=== PATIENT | female | born 1980 | race African-American/Black ===

== ENCOUNTER 2017-05-09 22:13 | Emergency (ER) | payer OTHER ==
[~2017-05-09] VITALS: Ht 175.3 cm; Wt 82.3 kg
[2017-05-09 22:21] VITALS: BP 144/88
--- NOTE | 2017-05-09 22:21 | NUR ---
PT TAKEN TO CHAIR E
--- NOTE | 2017-05-09 22:47 | NUR ---
PT MOVED TO BED 11
--- NOTE | 2017-05-10 00:21 | NUR ---
MD MADE AWARE OF UA AND RESULT
[2017-05-10 00:28] VITALS: BP 144/88
--- NOTE | 2017-05-10 00:29 | NUR ---
Patient discharged with v/s stable. Written and verbal after care instructions given and explained. Patient verbalized understanding. Ambulatory with steady gait. All questions addressed prior to discharge. Advised to follow up with PMD.
== END 2017-05-10 00:29 | disposition home or self-care (01) ==
LOC: MED 22:13
DX: Z30.432 Encounter for removal of intrauterine contraceptive device (principal); Z32.02 Encounter for pregnancy test, result negative; R03.0 Elevated blood-pressure reading, without diagnosis of hypertension
CPT/HCPCS: 81002; 81025; 99282

== ENCOUNTER 2018-02-16 12:36 | Emergency (ER) | payer SELFPAY ==
[~2018-02-16] VITALS: Ht 177.8 cm; Wt 83.7 kg
[2018-02-16 12:49] VITALS: BP 136/78
--- NOTE | 2018-02-16 12:53 | NUR ---
PT AMBULATES TO BED 4
--- NOTE | 2018-02-16 12:56 | NUR ---
PT. CAME INTO ED W/ c/o 2 days with drainage from eyes, ou red burning pain discoloration to left eyelid--pt states she had rubbed off make up with toilet paper prior to symptoms. DENIES ANY FEVERS. DENIES ANY VISION CHANGES. ER MD MADE AWARE. WILL CONTINUE TO MONITOR. SAFETY PRECAUTIONS IMPLEMENTED. WILL CONTINUE TO MONITOR.
[2018-02-16] MEDS ORDERED: TETRACAINE HCL/PF 0.5% OPTH 4 ML BTL OP ONE (14:35)
[2018-02-16] MEDS ORDERED: FLUORESCEIN OPTH STRIP 0.6 MG OP ONE (14:35)
[2018-02-16 15:15] VITALS: BP 130/82
--- NOTE | 2018-02-16 15:15 | NUR ---
Patient discharged with v/s stable. Written and verbal after care instructions given and explained. Patient alert, oriented and verbalized understanding of instructions. Ambulatory with steady gait. All questions addressed prior to discharge. ID band removed. Patient advised to follow up with PMD. Rx of ERYTHROMYCIN 0.5% OPTHALMIC SOLUTION given. Patient educated on indication of medication including possible reaction and side effects. Opportunity to ask questions provided and answered.
== END 2018-02-16 15:15 | disposition home or self-care (01) ==
LOC: MED 12:36
DX: H10.89 Other conjunctivitis (principal); B96.89 Other specified bacterial agents as the cause of diseases classified elsewhere
CPT/HCPCS: 99283

== ENCOUNTER 2018-06-23 04:40 | Emergency (ER) | payer MEDICAID ==
[~2018-06-23] VITALS: Ht 175.3 cm; Wt 86.2 kg
--- NOTE | 2018-06-23 04:59 | NUR ---
TO BED #09 AMBULATORY
[2018-06-23 05:00] VITALS: BP 152/88
--- NOTE | 2018-06-23 05:00 | NUR ---
Dr. Diaz evaluating patient
--- NOTE | 2018-06-23 05:07 | NUR ---
37/F COMPLAINTS OF RIGHT KNEE PAIN. AOX4. ABLE TO VERBALIZE NEEDS, STATES SHE HEARD A "CLICK" IN HER KNEE WHEN ATTEMPTING TO [employer] SOMETHING. ALL NEEDS. MET. MADE AWARE. WILL CONTINUE TO MONITOR.
[2018-06-23 05:08] VITALS: BP 152/88
== END 2018-06-23 05:10 | disposition home or self-care (01) ==
LOC: MED 04:40
DX: M25.561 Pain in right knee (principal); Z02.1 Encounter for pre-employment examination
CPT/HCPCS: 99281

== ENCOUNTER 2018-11-24 14:30 | Emergency (ER) | payer MEDICAID, OTHER ==
[~2018-11-24] VITALS: Ht 175.3 cm; Wt 81.2 kg
[2018-11-24 14:38] VITALS: BP 139/74
[2018-11-24 16:02] LABS: BASOPHILS % (AUTO) 1.4 % (0.0-2.0); EOSINOPHILS # (AUTO) 0.3 K/uL (0-0.4); EOSINOPHILS % (AUTO) 9.1 % (0.0-4.0); HEMOGLOBIN 13.2 g/dL (12.0-16.0); LYMPHOCYTES % (AUTO) 33.6 % (20.5-51.1); MEAN CORPUSCULAR HEMOGLOBIN 29 pg (27-31); MEAN CORPUSCULAR HGB CONC 33 g/dL (33-37); MEAN CORPUSCULAR VOLUME 88.2 fL (80-94); MONOCYTES # (AUTO) 0.2 K/uL (0.8-1.0); NEUTROPHILS # (AUTO) 1.4 K/uL (1.8-7.7); NEUTROPHILS % (AUTO) 47.9 % (42.2-75.2); PLATELET COUNT (AUTO) 248 K/uL (140-450); RED BLOOD CELL COUNT(AUTO) 4.53 MIL/uL (4.20-5.40); RED CELL DISTRIBUTION WIDTH 13.2 % (11.6-13.7); WHITE BLOOD COUNT (AUTO) 2.9 K/uL (4.8-10.8)
[2018-11-24 16:22] LABS: ANION GAP 8.6 (8-16); CARBON DIOXIDE 27.8 mmol/L (21-32); CREATININE 0.8 mg/dL (0.6-1.3); POTASSIUM 3.4 mmol/L (3.5-5.1)
[2018-11-24 16:25] VITALS: BP 139/74
[2018-11-27 12:52] LABS: CHLAMYDIA TRACHOMATIS AMP DNA NEGATIVE (NEGATIVE)
[2018-11-28 16:25] LABS: RAPID PLASMA REAGIN NON-REACTIVE (Non Reactiv)
== END 2018-11-24 16:25 | disposition home or self-care (01) ==
LOC: MED 14:30
DX: A64 Unspecified sexually transmitted disease (principal)
CPT/HCPCS: 36415; 80048; 85025; 86592; 87491; 87529; 99283

== ENCOUNTER 2020-05-20 22:29 | Emergency (ER) | payer OTHER ==
[~2020-05-20] VITALS: Ht 175.3 cm; Wt 81.2 kg
--- NOTE | 2020-05-20 22:32 | NUR ---
Pt's name called x 3 in lobby - no response.
[2020-05-20 22:35] VITALS: BP 169/103
--- NOTE | 2020-05-20 22:40 | NUR ---
Pt ambulated to lobby w/ steady gait. VSS.
--- NOTE | 2020-05-20 23:27 | NUR ---
AMBULATED TO BED 8 FROM [facility]
--- NOTE | 2020-05-20 23:27 | NUR ---
PATIENT PRESENTS TO ED WITH ABDOMINAL PAIN. PT STATES "I MIGHT HAVE INTERNAL BLEEDING" AND "I THINK IM ALLERGIC TO RADIATION". PT IS EXPRESSING PARANOID THOUGHTS. DENIES N/V/D; SKIN IS PINK/WARM/DRY; AAOX4 WITH EVEN AND STEADY GAIT; LUNGS CLEAR BL; HR EVEN AND REGULAR; PT DENIES ANY FEVER, CP, SOB, OR COUGH AT THIS TIME; PATIENT DENIES PAIN AT THIS TIME; VSS; PATIENT POSITIONED FOR COMFORT; HOB ELEVATED; BEDRAILS UP X2; BED DOWN. ER MD MADE AWARE OF PT STATUS. PMH: N/A ALLERGIES: N/A
--- NOTE | 2020-05-20 23:40 | NUR ---
DR HECTOR AT BEDSIDE FOR EXAM
[2020-05-20] MEDS ORDERED: PANTOPRAZOLE 40 MG INJ VIAL IVP ONE (23:45)
[2020-05-20] MEDS ORDERED: KETOROLAC 30 MG/ML VIAL IVP ONE (23:45)
[2020-05-20] MEDS ORDERED: NACL 0.9% 1,000 ML IV ONE (23:45)
--- NOTE | 2020-05-21 00:08 | NUR ---
PT BROUGHT TO XRAY VIA W/C
--- NOTE | 2020-05-21 00:09 | NUR ---
PT BROUGHT BACK FROM XRAY STUDY NOT COMPLETED. PT CONCERNED REGARDING STATUS
--- NOTE | 2020-05-21 00:15 | NUR ---
IV ESTABLISHED IN LEFT AC
[2020-05-21 00:16] LABS: BASOPHILS % (AUTO) 1.2 % (0.0-2.0); EOSINOPHILS # (AUTO) 0.2 K/uL (0-0.4); EOSINOPHILS % (AUTO) 5.1 % (0.0-4.0); HEMATOCRIT 35.8 % (36-48); HEMOGLOBIN 11.8 g/dL (12.0-16.0); LYMPHOCYTES # (AUTO) 1.7 K/uL (2.5-16.5); LYMPHOCYTES % (AUTO) 51.8 % (20.5-51.1); MEAN CORPUSCULAR HEMOGLOBIN 29 pg (27-31); MEAN CORPUSCULAR HGB CONC 33 g/dL (33-37); MEAN CORPUSCULAR VOLUME 89.2 fL (80-94); MONOCYTES # (AUTO) 0.4 K/uL (0.8-1.0); PLATELET COUNT (AUTO) 213 K/uL (140-450); RED BLOOD CELL COUNT(AUTO) 4.02 MIL/uL (4.20-5.40); RED CELL DISTRIBUTION WIDTH 13.1 % (11.6-13.7); WHITE BLOOD COUNT (AUTO) 3.3 K/uL (4.8-10.8)
--- NOTE | 2020-05-21 00:20 | NUR ---
PT REFUSED MEDICATIONS AND XRAY DUE TO POSSIBLE . PT UNABLE TO GIVE UA AT THIS TIME
[2020-05-21 00:30] LABS: PROTHROMBIN TIME 9.8 secs (10.8-13.4)
[2020-05-21 00:32] LABS: ALBUMIN 3.3 g/dL (3.4-5.0); ANION GAP 11.3 (8-16); CARBON DIOXIDE 27.2 mmol/L (21-32); CREATININE 0.8 mg/dL (0.6-1.3); POTASSIUM 3.5 mmol/L (3.5-5.1); TOTAL BILIRUBIN 0.2 mg/dL (0.0-1.0)
[2020-05-21 00:36] LABS: NEUTROPHILS % (AUTO) 29.9 % (42.2-75.2)
--- NOTE | 2020-05-21 00:43 | NUR ---
REPORTED TO DR BUCHANAN ABOUT PT REFUSING MEDICATIONS AND XRAY
--- NOTE | 2020-05-21 01:21 | NUR ---
PT RETURNED FROM RAD VIA W/C
[2020-05-21] MEDS ORDERED: PANT20EC PO (01:40)
[2020-05-21 01:58] VITALS: BP 160/100
--- NOTE | 2020-05-21 01:58 | NUR ---
Patient discharged with v/s stable AND DENIES A 0/10 PAIN. REPEAT BP 160/100 ER MD AWARE. Written and verbal after care instructions given and explained. Patient alert, oriented and verbalized understanding of instructions. Ambulatory with steady gait. All questions addressed prior to discharge. ID band removed. Patient advised to follow up with PMD. Rx of PROTONIX given. Patient educated on indication of medication including possible reaction and side effects. Opportunity to ask questions provided and answered.
== END 2020-05-21 01:58 | disposition home or self-care (01) ==
LOC: MED 22:29
DX: K21.9 Gastro-esophageal reflux disease without esophagitis (principal)
CPT/HCPCS: 36415; 74022; 80053; 81025; 85025; 85610; 85730; 96361; 96374; 96375; 99284; J7030

== ENCOUNTER 2020-07-03 22:05 | Emergency (ER) | payer OTHER ==
[~2020-07-03] VITALS: Ht 175.3 cm; Wt 76.7 kg
[~2020-07-03 22:05] MED LIST: PANT20EC PO
[2020-07-03 22:09] VITALS: BP 149/83
--- NOTE | 2020-07-03 22:30 | NUR ---
PT TAKEN TO BED 4
--- NOTE | 2020-07-03 22:30 | NUR ---
URINE SAMPLE COLLECTED, TAKEN TO LAB AND HAND GIVEN TO PILI SLOAN TECH.
--- NOTE | 2020-07-03 22:31 | NUR ---
patient ambulated to bed 04 with steady gait.
--- NOTE | 2020-07-03 22:35 | NUR ---
39/F complaining of dizziness and abdominal pain "when driving in car" x 4 months. Pt currently with no pain, n/v/d, fever at this moment. Pt currently not in distress, no requests made. med hx: denies allergies: nka
--- NOTE | 2020-07-03 22:36 | NUR ---
Dr. Hairston examining patient.
--- NOTE | 2020-07-03 23:03 | NUR ---
X-Ray at bedside.
[2020-07-03 23:12] LABS: BASOPHILS % (AUTO) 1.3 % (0.0-2.0); EOSINOPHILS # (AUTO) 0.1 K/uL (0-0.4); EOSINOPHILS % (AUTO) 3.2 % (0.0-4.0); LYMPHOCYTES % (AUTO) 30.7 % (20.5-51.1); MEAN CORPUSCULAR HEMOGLOBIN 29 pg (27-31); MEAN CORPUSCULAR HGB CONC 33 g/dL (33-37); MEAN CORPUSCULAR VOLUME 88.2 fL (80-94); MONOCYTES # (AUTO) 0.3 K/uL (0.8-1.0); MONOCYTES % (AUTO) 8.9 % (1.7-9.3); NEUTROPHILS # (AUTO) 1.9 K/uL (1.8-7.7); NEUTROPHILS % (AUTO) 55.9 % (42.2-75.2); PLATELET COUNT (AUTO) 241 K/uL (140-450); RED BLOOD CELL COUNT(AUTO) 4.42 MIL/uL (4.20-5.40); RED CELL DISTRIBUTION WIDTH 13.1 % (11.6-13.7); WHITE BLOOD COUNT (AUTO) 3.4 K/uL (4.8-10.8)
--- NOTE | 2020-07-03 23:15 | NUR ---
urine sent to lab
[2020-07-03] MEDS: ACETAMINOPHEN EXTRA STRENGTH 500 MG TAB PO ONE ×2 (23:18→23:24)
[2020-07-03 23:19] LABS: APPEARANCE,URINE CLEAR (CLEAR); BILIRUBIN,URINE NEGATIVE (NEGATIVE); BLOOD, URINE NEGATIVE (NEGATIVE); COLOR,URINE YELLOW (YELLOW); LEUKOCYTE ESTERASE ,URINE NEGATIVE (NEGATIVE); NITRITE, URINE POSITIVE (NEGATIVE); UGLUCOSE NEGATIVE (NEGATIVE)
--- NOTE | 2020-07-03 23:24 | NUR ---
patient refused tylenol saying "i dont need it". made aware
[2020-07-03 23:27] LABS: ALBUMIN 3.9 g/dL (3.4-5.0); ASPARTATE AMINOTRANSFERASE 36 U/L (15-37); CARBON DIOXIDE 28.9 mmol/L (21-32); CHLORIDE 107 mmol/L (98-107); GFR ARICAN-AMERICAN 79 mL/min (>90); GLUCOSE 114 mg/dL (74-106); SODIUM SERUM 144 mmol/L (136-145); TOTAL BILIRUBIN 0.6 mg/dL (0.0-1.0); UREA NITROGEN, BLOOD 11 mg/dL (7-18)
[2020-07-03 23:28] LABS: POTASSIUM 2.9 mmol/L (3.5-5.1)
[2020-07-03 23:34] LABS: RBC,URINE 0-5 /HPF (0-5)
[2020-07-03] MEDS: POTASSIUM CHLORIDE 10 MEQ TABER PO ONE ×2 (23:34→23:35)
[2020-07-03 23:36] LABS: BARBITURATE, URINE NEGATIVE ng/ml (NEG <=200); BENZODIAZEPINE, URINE NEGATIVE ng/mL (NEG <=200); CANNABINOID, URINE NEGATIVE ng/mL (NEG <=50); COCAINE, URINE NEGATIVE ng/mL (NEG <=300); OPIATE, URINE NEGATIVE ng/mL (NEG <=2000); PHENCYCLIDINE SCREEN,URINE NEGATIVE ng/mL (NEG <=25)
--- NOTE | 2020-07-03 23:36 | NUR ---
patient refused KDur ordered despite health teaching. Pt said "i dont want it, i'll just eat bananas"
--- NOTE | 2020-07-03 23:42 | NUR ---
X-Ray at bedside.
[2020-07-03] MEDS ORDERED: cephALEXin 500 MG CAP PO ONE (23:45)
[2020-07-04] MEDS ORDERED: CEPH-588 PO
--- NOTE | 2020-07-04 00:03 | NUR ---
Dr. Hairston at bedside
--- NOTE | 2020-07-04 00:17 | NUR ---
patient refused cephalexin ordered. pt education provided, explained the importance of taking the medication. pt still refused. made aware.
[2020-07-04] MEDS ORDERED: MECL-370 PO (00:18)
[2020-07-04 00:48] VITALS: BP 151/96
--- NOTE | 2020-07-04 00:48 | NUR ---
Patient discharged with v/s stable. Written and verbal after care instructions given and explained. Patient alert, oriented and verbalized understanding of instructions. Ambulatory with steady gait. All questions addressed prior to discharge. ID band removed. Patient advised to follow up with PMD. Rx of Keflex, Meclizine given. Patient educated on indication of medication including possible reaction and side effects. Opportunity to ask questions provided and answered.
== END 2020-07-04 00:48 | disposition home or self-care (01) ==
LOC: MED 22:05
DX: N39.0 Urinary tract infection, site not specified (principal); E87.5 Hyperkalemia; R42 Dizziness and giddiness; R00.1 Bradycardia, unspecified; Z79.899 Other long term (current) drug therapy
CPT/HCPCS: 36415; 74018; 80053; 80305; 81001; 84702; 85025; 87086; 93005; 99285; G0482

== ENCOUNTER 2020-09-05 09:00 | Outpatient (CLI) | payer OTHER, SELFPAY ==
[~2020-09-05 09:00] MED LIST changes: +CEPH-588 PO; +MECL-370 PO; +NITR100C3 PO
== END 2020-09-05 23:59 | disposition home or self-care (01) ==
LOC: MLB 09:00 → EDSTATUS 09-13 10:50 → MERGE 09-13 10:50
PROVIDERS: ATTEND Internal Medicine Gastroenterology
DX: Z01.812 Encounter for preprocedural laboratory examination (principal); R10.9 Unspecified abdominal pain; Z20.822 Contact with and (suspected) exposure to COVID-19
CPT/HCPCS: U0003